=== PATIENT | male | born 1980 | race Asian ===

== ENCOUNTER 2021-12-03 16:04 | Emergency (ER) | payer MEDICAID, OTHER ==
[~2021-12-03] VITALS: Ht 167.6 cm; Wt 61.4 kg
[2021-12-03] MEDS ORDERED: LIDOCAINE 5% TRANSDERMAL PATCH TD ONE (16:45)
[2021-12-03] MEDS ORDERED: KETOROLAC TROMETHAMINE 30 MG/ML VIAL IM ONE (16:45)
[2021-12-03 18:51] VITALS: BP 115/78
[2021-12-03] MEDS ORDERED: IBUP-2070 PO (19:19)
[2021-12-03] MEDS ORDERED: BACL10TA PO (19:19)
== END 2021-12-03 20:09 | disposition home or self-care (01) ==
LOC: EMS 16:04
DX: S13.4XXA Sprain of ligaments of cervical spine, initial encounter (principal); V89.2XXA Person injured in unspecified motor-vehicle accident, traffic, initial encounter; Y93.89 Activity, other specified; Y92.89 Other specified places as the place of occurrence of the external cause; Y99.8 Other external cause status
CPT/HCPCS: 72040; 72070; 96372; 99284; J1885